=== PATIENT | female | born 1940 | race African-American/Black ===

== ENCOUNTER 2019-01-26 09:27 | Inpatient (IN) ==
[2019-01-26] MEDS ORDERED: DOCUSATE SODIUM 100 MG CAPSULE PO PRN (09:34)
[2019-01-26] MEDS ORDERED: MECLIZINE 25 MG TABLET PO PRN (09:43)
[2019-01-26] MEDS: ACETAMINOPHEN 325 MG TABLET PO PRN (14:05)
[2019-01-26 14:34] LABS: Apearance,Urine CLEAR (Clear); Bilirubin,Urine Negative (Negative); Blood, Urine Negative (Negative); Glucose,Urine (UA) Negative (Negative); Hyaline Casts,Urine 1 /LPF (0-3); Ketones,Urine Negative (Negative); Nitrite,Urine Negative (Negative); Protein,Urine Negative; RBC,Urine 1 /HPF (0-4); Squamous Epithelial Cell,Urine Occasional /HPF (0-10); Urine Color Yellow (Yellow); Urine Specific Gravity 1.016 (1.001-1.035); Urine Urobilinogen < 2.0 EU/DL (0.2-1.0); WBC,Urine 1 /HPF (0-6)
[2019-01-26] MEDS: SODIUM CHLORIDE 0.9% 1,000 ML IV SCH ×2 (17:09→21:32)
[2019-01-26 17:16] LABS: Basophils % 0.3 % (0.0-0.8); Eosinophils % 0.4 % (0.00-10.9); Hematocrit 19.2 VOL% (35.7-47.0); Immature Granulocytes % 0.7 %; Immature Granulocytes Absolute 0.06 #; Lymphocytes # 1.8 10*3/uL (1.4-4.0); Lymphocytes % 19.8 % (21.3-54.2); Mean Corpuscular HGB Conc 30.7 GM/DL (32-36); Mean Corpuscular Volume 91.9 FL (87-102); Mean Platelet Volume 9.6 FL (9.6-12.0); Monocytes % 8.4 % (1.7-12.7); NRBC # 0.07 10*3/uL; Neutrophils % 70.4 % (38.7-73.9); Platelet Count 354 T/CUMM (130-400); Red Blood Count 2.09 MC/CUMM (3.8-5.5)
[2019-01-26 17:20] LABS: Hemoglobin 5.9 GM/DL (12.0-16.0)
[2019-01-26] MEDS ORDERED: SODIUM CHLORIDE 0.9% 1,000 ML IV PRN (17:28)
[2019-01-26] MEDS ORDERED: FUROSEMIDE 20 MG/2 ML VIAL IV PRN (17:28)
[2019-01-26 17:40] LABS: Alanine Aminotransferase 17 U/L (13-56); Albumin 2.8 G/DL (3.4-5.0); Alkaline Phosphatase 88 U/L (45-117); Aspartate Amino Transferase 12 U/L (0-37); Bilirubin,Total < 0.39 MG/DL (0.2-1.0); Blood Urea Nitrogen 32 MG/DL (7-18); Calcium 7.6 MG/DL (8.5-10.1); Estimated Glom Filtration Rate 71 ML/MIN; Glucose 139 MG/DL (74-106); Osmolality,Calculated 283.7 MOS/KG (273-304); Total Protein 5.8 G/DL (6.4-8.3)
[2019-01-26 17:44] LABS: Anisocytosis 1+; Elliptocytes 1+; Hypochromasia 2+; Platelet Estimate Adequate; Poikilocytosis 1+; Polychromasia 1+
[2019-01-26] MEDS ORDERED: LACTULOSE 20 GM/30 ML UDCUP PO ONE (21:00)
[2019-01-26] MEDS: traMADol 50 MG TABLET PO PRN (21:29)
[2019-01-27 08:37] LABS: Hematocrit 26.5 VOL% (35.7-47.0); Hemoglobin 8.4 GM/DL (12.0-16.0)
[2019-01-27] MEDS ORDERED: PANTOPRAZOLE 40 MG TABLET PO SCH (09:00)
[2019-01-27] MEDS ORDERED: SODIUM CHLORIDE 0.9% 1,000 ML IV PRN ×4 (09:12→12:40)
[2019-01-27] MEDS: ACETAMINOPHEN 325 MG TABLET PO PRN (09:21)
[2019-01-27] MEDS: ONDANSETRON 4 MG/2 ML VIAL IV PRN (12:10)
[2019-01-27] MEDS: SODIUM CHLORIDE 0.9% 1,000 ML IV SCH ×2 (18:03→18:05)
[2019-01-27] MEDS: traMADol 50 MG TABLET PO PRN (18:33)
[2019-01-27] MEDS: PANTOPRAZOLE 40 MG TABLET PO SCH (21:18)
[2019-01-27] MEDS: ARIPiprazole 2 MG TABLET PO SCH (21:19)
[2019-01-28] MEDS: ACETAMINOPHEN 325 MG TABLET PO PRN (03:25)
[2019-01-28] MEDS: SODIUM CHLORIDE 0.9% 1,000 ML IV SCH ×2 (04:25→13:52)
[2019-01-28 07:18] LABS: Basophils # 0.1 10*3/uL (0.0-0.2); Basophils % 0.9 % (0.0-0.8); Eosinophils # 0.1 10*3/uL (0.0-0.87); Eosinophils % 1.7 % (0.00-10.9); Hematocrit 28.4 VOL% (35.7-47.0); Hemoglobin 9.2 GM/DL (12.0-16.0); Immature Granulocytes Absolute 0.14 #; Lymphocytes # 1.3 10*3/uL (1.4-4.0); Lymphocytes % 19.3 % (21.3-54.2); Mean Corpuscular HGB Conc 32.4 GM/DL (32-36); Mean Corpuscular Volume 89.9 FL (87-102); Mean Platelet Volume 9.7 FL (9.6-12.0); NRBC # 0.15 10*3/uL; Neutrophils % 65.1 % (38.7-73.9); Platelet Count 315 T/CUMM (130-400); Red Blood Count 3.16 MC/CUMM (3.8-5.5); Red Cell Distribution Width 24.4 % (9.3-17.3); White Blood Count 6.9 T/CUMM (4-12)
[2019-01-28 07:40] LABS: Calcium 7.3 MG/DL (8.5-10.1); Osmolality,Calculated 285.8 MOS/KG (273-304)
[2019-01-28 07:43] LABS: Platelet Estimate Normal
[2019-01-28 07:44] LABS: Anisocytosis 3+; Poikilocytosis Slight; Polychromasia 1+
[2019-01-28] MEDS ORDERED: LACTATED RINGERS 1,000 ML IV SCH (08:00)
[2019-01-28] MEDS ORDERED: LIDOCAINE 2% 5 ML VIAL ONE (10:00)
[2019-01-28] MEDS ORDERED: PROPOFOL 200 MG/20 ML VIAL IV ONE (10:00)
[2019-01-28] MEDS ORDERED: ONDANSETRON 4 MG/2 ML VIAL ONE (12:00)
[2019-01-28] MEDS: ONDANSETRON 4 MG/2 ML VIAL IV PRN (12:02)
[2019-01-28] MEDS: ESCITALOPRAM 10 MG TABLET PO SCH (13:45)
[2019-01-28] MEDS: PANTOPRAZOLE 40 MG TABLET PO SCH ×2 (13:46→21:01)
[2019-01-28] MEDS: traMADol 50 MG TABLET PO PRN ×2 (15:41→22:00)
[2019-01-28] MEDS: ARIPiprazole 2 MG TABLET PO SCH (21:00)
[2019-01-29 05:00] LABS: Calcium 7.1 MG/DL (8.5-10.1); Osmolality,Calculated 278.4 MOS/KG (273-304)
[2019-01-29] MEDS: SODIUM CHLORIDE 0.9% 1,000 ML IV SCH ×3 (05:32→19:17)
[2019-01-29] MEDS ORDERED: MAGNESIUM SULF RIDER 4 GM in PREMIX 1 EACH IV PRN (09:34)
[2019-01-29] MEDS ORDERED: MAGNESIUM SULF RIDER 2 GM in PREMIX 1 EACH IV PRN (09:34)
[2019-01-29] MEDS: traMADol 50 MG TABLET PO PRN ×2 (09:43→14:13)
[2019-01-29] MEDS: PANTOPRAZOLE 40 MG TABLET PO SCH ×2 (09:44→20:11)
[2019-01-29] MEDS: ESCITALOPRAM 10 MG TABLET PO SCH (09:46)
[2019-01-29] MEDS: ARIPiprazole 2 MG TABLET PO SCH (20:12)
[2019-01-29] MEDS: traZODone 50 MG TABLET PO PRN (20:13)
[2019-01-30] MEDS: traMADol 50 MG TABLET PO PRN ×4 (00:04→19:46)
[2019-01-30 04:33] LABS: Basophils # 0.1 10*3/uL (0.0-0.2); Basophils % 0.6 % (0.0-0.8); Eosinophils # 0.1 10*3/uL (0.0-0.87); Eosinophils % 1.8 % (0.00-10.9); Hematocrit 26.3 VOL% (35.7-47.0); Hemoglobin 8.3 GM/DL (12.0-16.0); Immature Granulocytes Absolute 0.08 #; Lymphocytes # 1.4 10*3/uL (1.4-4.0); Lymphocytes % 18.1 % (21.3-54.2); Mean Corpuscular HGB Conc 31.6 GM/DL (32-36); Mean Corpuscular Volume 92.3 FL (87-102); Mean Platelet Volume 9.2 FL (9.6-12.0); Monocytes % 13.7 % (1.7-12.7); NRBC # 0.02 10*3/uL; Neutrophils % 64.8 % (38.7-73.9); Platelet Count 328 T/CUMM (130-400); Red Blood Count 2.85 MC/CUMM (3.8-5.5); Red Cell Distribution Width 24.9 % (9.3-17.3); White Blood Count 7.8 T/CUMM (4-12)
[2019-01-30 04:52] LABS: Calcium 7.4 MG/DL (8.5-10.1); Osmolality,Calculated 293.3 MOS/KG (273-304)
[2019-01-30] MEDS: SODIUM CHLORIDE 0.9% 1,000 ML IV SCH ×3 (05:09→20:00)
[2019-01-30 06:47] LABS: Eosinophils 4 % (0-10); Lymphocytes 20 % (20-55); Platelet Estimate Normal; Segmented Neutrophils 65 % (50-85); Total Cells Counted 100
[2019-01-30 06:48] LABS: Hypochromasia 2+
[2019-01-30] MEDS: ESCITALOPRAM 10 MG TABLET PO SCH (10:15)
[2019-01-30] MEDS: PANTOPRAZOLE 40 MG TABLET PO SCH ×2 (10:15→19:46)
[2019-01-30 13:08] LABS: Hematocrit 26.5 VOL% (35.7-47.0); Hemoglobin 8.4 GM/DL (12.0-16.0)
[2019-01-30 18:51] LABS: Hematocrit 26.4 VOL% (35.7-47.0); Hemoglobin 8.3 GM/DL (12.0-16.0)
[2019-01-30] MEDS ORDERED: SODIUM CHLORIDE 0.9% 1,000 ML IV SCH (19:30)
[2019-01-30] MEDS: traZODone 50 MG TABLET PO PRN (19:45)
[2019-01-30] MEDS: ARIPiprazole 2 MG TABLET PO SCH (19:46)
[2019-01-31] MEDS: traMADol 50 MG TABLET PO PRN ×3 (03:24→18:36)
[2019-01-31] MEDS: SODIUM CHLORIDE 0.9% 1,000 ML IV SCH ×3 (03:33→16:30)
[2019-01-31 06:35] LABS: Basophils # 0.1 10*3/uL (0.0-0.2); Basophils % 0.7 % (0.0-0.8); Eosinophils # 0.1 10*3/uL (0.0-0.87); Eosinophils % 1.9 % (0.00-10.9); Hematocrit 27.1 VOL% (35.7-47.0); Hemoglobin 8.3 GM/DL (12.0-16.0); Immature Granulocytes % 0.6 %; Immature Granulocytes Absolute 0.04 #; Lymphocytes # 1.2 10*3/uL (1.4-4.0); Lymphocytes % 18.6 % (21.3-54.2); Mean Corpuscular HGB Conc 30.6 GM/DL (32-36); Mean Corpuscular Volume 95.8 FL (87-102); Mean Platelet Volume 9.2 FL (9.6-12.0); Monocytes % 14.1 % (1.7-12.7); Neutrophils % 64.1 % (38.7-73.9); Platelet Count 343 T/CUMM (130-400); Red Blood Count 2.83 MC/CUMM (3.8-5.5); Red Cell Distribution Width 25.7 % (9.3-17.3); White Blood Count 6.7 T/CUMM (4-12)
[2019-01-31 06:46] LABS: Calcium 7.5 MG/DL (8.5-10.1); Osmolality,Calculated 285.7 MOS/KG (273-304)
[2019-01-31 06:54] LABS: Platelet Estimate Normal
[2019-01-31 06:55] LABS: Anisocytosis 2+
[2019-01-31 06:56] LABS: Macrocytosis 1+; Polychromasia 1+
[2019-01-31] MEDS ORDERED: BISACODYL 10 MG SUPP RECTAL PRN (07:40)
[2019-01-31] MEDS ORDERED: LACTULOSE 20 GM/30 ML UDCUP PO PRN (08:10)
[2019-01-31] MEDS: ESCITALOPRAM 10 MG TABLET PO SCH (08:11)
[2019-01-31] MEDS: PANTOPRAZOLE 40 MG TABLET PO SCH ×2 (08:11→21:36)
[2019-01-31] MEDS: ONDANSETRON 4 MG/2 ML VIAL IV PRN (09:09)
[2019-01-31] MEDS: MULTIVITAMIN (CENTRUM) TABLET PO SCH (10:23)
[2019-01-31] MEDS: CLORAZEPATE 7.5 MG TABLET PO SCH ×2 (10:23→21:37)
[2019-01-31] MEDS ORDERED: LACTULOSE 20 GM/30 ML UDCUP PO SCH (12:00)
[2019-01-31 12:19] LABS: Hematocrit 30.6 VOL% (35.7-47.0); Hemoglobin 9.7 GM/DL (12.0-16.0)
[2019-01-31] MEDS ORDERED: CYANOCOBALAMIN 1000 MCG/1 ML VIAL IM ONE (13:00)
[2019-01-31 19:49] LABS: Hematocrit 27.7 VOL% (35.7-47.0); Hemoglobin 8.6 GM/DL (12.0-16.0)
[2019-01-31] MEDS: ARIPiprazole 2 MG TABLET PO SCH (21:36)
[2019-02-01] MEDS: traMADol 50 MG TABLET PO PRN (02:11)
[2019-02-01] MEDS ORDERED: CYANOCOBALAMIN 500 MCG TABLET PO SCH (09:00)
[2019-02-01] MEDS ORDERED: ESCITALOPRAM 10 MG TABLET PO SCH (09:00)
[2019-02-01] MEDS: MULTIVITAMIN (CENTRUM) TABLET PO SCH (09:04)
[2019-02-01] MEDS: CLORAZEPATE 7.5 MG TABLET PO SCH (09:05)
[2019-02-01] MEDS: PANTOPRAZOLE 40 MG TABLET PO SCH (09:05)
[2019-02-01] MEDS: ONDANSETRON 4 MG/2 ML VIAL IV PRN (09:28)
[2019-02-01 10:45] VITALS: BP 127/66
== END 2019-02-01 13:11 | disposition home health service (06) | DRG 378 ==
LOC: N.2W → N.4E 01-27 17:44
PROVIDERS: ADMIT Family Medicine; ATTEND Family Medicine

== ENCOUNTER 2021-08-23 23:45 | Inpatient (IN) ==
[2021-08-24] MEDS ORDERED: SODIUM CHLORIDE 0.9% 1,000 ML IV STA (00:28)
[2021-08-24] MEDS ORDERED: ONDANSETRON 4 MG/2 ML VIAL IV STA (01:24)
[2021-08-24] MEDS ORDERED: HYDROmorphone 1 MG/1 ML SYRINGE IV ONE (01:24)
[2021-08-24 01:26] LABS: Basophils # 0.1 10*3/uL (0.0-0.2); Basophils % 0.5 % (0.0-0.8); Eosinophils % 0.3 % (0.00-10.9); Hematocrit 24.9 VOL% (35.7-47.0); Immature Granulocytes % 0.6 %; Immature Granulocytes Absolute 0.06 #; Lymphocytes # 0.4 10*3/uL (1.4-4.0); Lymphocytes % 3.5 % (21.3-54.2); Mean Corpuscular HGB Conc 32.1 GM/DL (32-36); Mean Platelet Volume 10.5 FL (9.6-12.0); Monocytes # 0.4 10*3/uL (0.11-0.8); Neutrophils % 91.1 % (38.7-73.9); Platelet Count 261 T/CUMM (130-400); Red Blood Count 2.62 MC/CUMM (3.8-5.5); Red Cell Distribution Width 13.4 % (9.3-17.3); White Blood Count 10.7 T/CUMM (4-12)
[2021-08-24 01:27] LABS: Bacteria,Urine Occasional /HPF (Few); Hyaline Casts,Urine 3 /LPF (0-3); Mucus,Urine Occasional /LPF (Occasional); RBC,Urine 1 /HPF (0-4)
[2021-08-24 01:30] LABS: Glucose,Urine (UA) Negative (Negative); Ketones,Urine Negative (Negative); Nitrite,Urine Positive (Negative); Protein,Urine Negative (Negative); Urine Appearance Clear (Clear); Urine Color Orange (Yellow); Urine Specific Gravity < 1.005 (1.001-1.035)
[2021-08-24 01:31] LABS: Bilirubin,Urine Negative (Negative); Blood, Urine Negative (Negative)
[2021-08-24 01:48] LABS: Lymphocytes 5 % (20-55); Platelet Estimate Normal; Total Cells Counted 100
[2021-08-24 01:49] LABS: Alanine Aminotransferase 33 U/L (13-56); Albumin 2.9 G/DL (3.4-5.0); Alkaline Phosphatase 46 U/L (45-117); Aspartate Amino Transferase 25 U/L (0-37); Bilirubin,Total < 0.39 MG/DL (0.20-1.00); Blood Urea Nitrogen 53 MG/DL (7-18); Calcium 9.5 MG/DL (8.5-10.1); Carbon Dioxide 26 MMOL/L (21-32); Chloride 105 MMOL/L (98-107); Glucose 126 MG/DL (74-106); Osmolality,Calculated 288.8 MOS/KG (273-304); Sodium 137 MMOL/L (136-145); Total Protein 6.2 G/DL (6.4-8.2)
[2021-08-24] MEDS ORDERED: ACETAMINOPHEN 325 MG TABLET PO PRN (04:52)
[2021-08-24] MEDS: SODIUM CHLORIDE 0.9% 1,000 ML IV SCH ×4 (07:28→20:25)
[2021-08-24] MEDS: NON-FORMULARY MEDICATION (Calcium Carbonate-Vitamin D3 [Caltrate 600 Plus D] 600 mg (1,500 PO SCH (09:15)
[2021-08-24] MEDS: DULoxetine 30 MG CAPSULE PO SCH (09:15)
[2021-08-24] MEDS: LOSARTAN 25 MG TABLET PO SCH (09:15)
[2021-08-24] MEDS: MULTIVITAMIN (CENTRUM) TABLET PO SCH (09:15)
[2021-08-24] MEDS: DOCUSATE SODIUM 100 MG CAPSULE PO SCH ×2 (09:15→21:27)
[2021-08-24] MEDS: PANTOPRAZOLE 40 MG TABLET PO SCH ×2 (09:16→21:27)
[2021-08-24] MEDS: hydroCHLOROthiazide 25 MG TABLET PO SCH (09:16)
[2021-08-24] MEDS: CHOLECALCIFEROL 5,000 UNIT TABLET PO SCH (09:16)
[2021-08-24] MEDS: APIXABAN 2.5 MG TABLET PO SCH ×2 (09:16→21:27)
[2021-08-24] MEDS: FLUTICASONE 50 MCG NASAL SPRAY 16 GM BOTTLE BOTH NARES SCH (09:23)
[2021-08-24] MEDS: ENOXAPARIN 40 MG/0.4 ML SYRINGE SUBCUT SCH (09:23)
[2021-08-24] MEDS: DOXYCYCLINE HYCLATE INJ 100 MG in SODIUM CHLORIDE 0.9% 100 ML IV SCH ×2 (09:23→17:05)
[2021-08-24] MEDS: HYDROmorphone 1 MG/1 ML SYRINGE IV PRN ×3 (09:38→21:26)
[2021-08-24] MEDS ORDERED: VANCOMYCIN INJ 1,000 MG in SODIUM CHLORIDE 0.9% 250 ML IV PRN (15:05)
[2021-08-24] MEDS ORDERED: VANCOMYCIN INJ 1,000 MG in SODIUM CHLORIDE 0.9% 250 ML IV ONE (16:00)
[2021-08-24] MEDS: FLUCONAZOLE INJ 100 MG/50 ML PREMIX IV SCH (16:35)
[2021-08-24] MEDS: NYSTATIN 500,000 UNIT/5 ML UDCUP PO SCH ×2 (16:35→21:26)
[2021-08-25] MEDS: HYDROmorphone 1 MG/1 ML SYRINGE IV PRN ×4 (03:42→19:17)
[2021-08-25] MEDS: SODIUM CHLORIDE 0.9% 1,000 ML IV SCH ×3 (04:33→22:20)
[2021-08-25 04:51] LABS: Basophils % 0.5 % (0.0-0.8); Eosinophils % 0.4 % (0.00-10.9); Hematocrit 23.4 VOL% (35.7-47.0); Hemoglobin 7.2 GM/DL (12.0-16.0); Immature Granulocytes % 0.7 %; Immature Granulocytes Absolute 0.04 #; Lymphocytes # 0.8 10*3/uL (1.4-4.0); Lymphocytes % 14.2 % (21.3-54.2); Mean Corpuscular HGB Conc 30.8 GM/DL (32-36); Mean Corpuscular Volume 97.9 FL (87-102); Monocytes # 0.6 10*3/uL (0.11-0.8); Monocytes % 11.5 % (1.7-12.7); Neutrophils % 72.7 % (38.7-73.9); Platelet Count 184 T/CUMM (130-400); Red Blood Count 2.39 MC/CUMM (3.8-5.5); Red Cell Distribution Width 13.3 % (9.3-17.3); White Blood Count 5.6 T/CUMM (4-12)
[2021-08-25 05:26] LABS: Alanine Aminotransferase 34 U/L (13-56); Albumin 2.1 G/DL (3.4-5.0); Alkaline Phosphatase 43 U/L (45-117); Aspartate Amino Transferase 30 U/L (0-37); Bilirubin,Total < 0.39 MG/DL (0.20-1.00); Blood Urea Nitrogen 46 MG/DL (7-18); Calcium 8.3 MG/DL (8.5-10.1); Carbon Dioxide 24 MMOL/L (21-32); Chloride 112 MMOL/L (98-107); Glucose 106 MG/DL (74-106); Osmolality,Calculated 294.1 MOS/KG (273-304); Potassium 3.8 MMOL/L (3.5-5.1); Sodium 142 MMOL/L (136-145); Total Protein 5.1 G/DL (6.4-8.2)
[2021-08-25 05:37] LABS: Iron 9 UG/DL (50-170)
[2021-08-25] MEDS: DOXYCYCLINE HYCLATE INJ 100 MG in SODIUM CHLORIDE 0.9% 100 ML IV SCH ×2 (05:40→18:35)
[2021-08-25 05:48] LABS: Anisocytosis Slight; Band Neutrophils 16 % (0-10); Lymphocytes 16 % (20-55); Platelet Estimate Normal; Total Cells Counted 100
[2021-08-25 05:49] LABS: Macrocytosis Slight
[2021-08-25] MEDS: APIXABAN 2.5 MG TABLET PO SCH ×2 (08:38→20:50)
[2021-08-25] MEDS: DOCUSATE SODIUM 100 MG CAPSULE PO SCH ×2 (08:38→20:50)
[2021-08-25] MEDS: MULTIVITAMIN (CENTRUM) TABLET PO SCH (08:38)
[2021-08-25] MEDS: LOSARTAN 25 MG TABLET PO SCH (08:38)
[2021-08-25] MEDS: hydroCHLOROthiazide 25 MG TABLET PO SCH (08:38)
[2021-08-25] MEDS: CHOLECALCIFEROL 5,000 UNIT TABLET PO SCH (08:38)
[2021-08-25] MEDS: NON-FORMULARY MEDICATION (Calcium Carbonate-Vitamin D3 [Caltrate 600 Plus D] 600 mg (1,500 PO SCH (08:38)
[2021-08-25] MEDS: DULoxetine 30 MG CAPSULE PO SCH (08:38)
[2021-08-25] MEDS: PANTOPRAZOLE 40 MG TABLET PO SCH ×2 (08:38→20:50)
[2021-08-25] MEDS ORDERED: IRON SUCROSE 100 MG/5 ML VIAL IV ONE ×2 (09:00→16:06)
[2021-08-25] MEDS: NYSTATIN 500,000 UNIT/5 ML UDCUP PO SCH ×4 (10:31→20:51)
[2021-08-25] MEDS: ENOXAPARIN 40 MG/0.4 ML SYRINGE SUBCUT SCH (10:31)
[2021-08-25] MEDS: FLUTICASONE 50 MCG NASAL SPRAY 16 GM BOTTLE BOTH NARES SCH (10:31)
[2021-08-25] MEDS: FLUCONAZOLE INJ 100 MG/50 ML PREMIX IV SCH (15:36)
[2021-08-25] MEDS ORDERED: FUROSEMIDE 20 MG/2 ML VIAL IV ONE (16:30)
[2021-08-25] MEDS ORDERED: MAGNESIUM SULF RIDER 2 GM/50 ML PREMIX IV ONE (16:30)
[2021-08-25] MEDS ORDERED: FERRIC GLUCONATE COMPLEX 125 MG in SODIUM CHLORIDE 0.9% 100 ML IV ONE (17:00)
[2021-08-25] MEDS ORDERED: IRON SUCROSE 100 MG in SODIUM CHLORIDE 0.9% 100 ML IV ONE (17:00)
[2021-08-25] MEDS ORDERED: VANCOMYCIN INJ 1,000 MG in SODIUM CHLORIDE 0.9% 250 ML IV ONE (18:30)
[2021-08-26] MEDS: ACETAMINOPHEN 650 MG SUPP RECTAL PRN (01:22)
[2021-08-26] MEDS: ONDANSETRON 4 MG/2 ML VIAL IV PRN ×3 (03:25→23:50)
[2021-08-26] MEDS: HYDROmorphone 1 MG/1 ML SYRINGE IV PRN ×3 (03:33→17:28)
[2021-08-26] MEDS ORDERED: FUROSEMIDE 20 MG/2 ML VIAL IV ONE (04:00)
[2021-08-26] MEDS: SODIUM CHLORIDE 0.9% 1,000 ML IV SCH ×3 (04:26→21:34)
[2021-08-26] MEDS: hydroCHLOROthiazide 25 MG TABLET PO SCH (08:55)
[2021-08-26] MEDS: DULoxetine 30 MG CAPSULE PO SCH (08:56)
[2021-08-26] MEDS: LOSARTAN 25 MG TABLET PO SCH (08:56)
[2021-08-26] MEDS: PANTOPRAZOLE 40 MG TABLET PO SCH ×2 (08:56→21:37)
[2021-08-26] MEDS: NYSTATIN 500,000 UNIT/5 ML UDCUP PO SCH ×4 (08:56→21:37)
[2021-08-26] MEDS: ENOXAPARIN 40 MG/0.4 ML SYRINGE SUBCUT SCH (08:57)
[2021-08-26] MEDS ORDERED: MAGNESIUM SULF RIDER 2 GM/50 ML PREMIX IV ONE (09:00)
[2021-08-26] MEDS ORDERED: IRON SUCROSE 100 MG/5 ML VIAL IV SCH (09:00)
[2021-08-26] MEDS ORDERED: FERRIC GLUCONATE COMPLEX 125 MG in SODIUM CHLORIDE 0.9% 100 ML IV ONE ×2 (09:00→13:00)
[2021-08-26] MEDS ORDERED: IRON SUCROSE 100 MG/5 ML VIAL IV ONE (09:00)
[2021-08-26 09:02] LABS: Basophils % 0.4 % (0.0-0.8); Eosinophils # 0.1 10*3/uL (0.0-0.87); Hematocrit 33.8 VOL% (35.7-47.0); Hemoglobin 10.8 GM/DL (12.0-16.0); Immature Granulocytes % 0.9 %; Immature Granulocytes Absolute 0.07 #; Lymphocytes # 0.9 10*3/uL (1.4-4.0); Lymphocytes % 11.1 % (21.3-54.2); Mean Corpuscular Volume 92.1 FL (87-102); Mean Platelet Volume 11.8 FL (9.6-12.0); Neutrophils % 74.6 % (38.7-73.9); Platelet Count 171 T/CUMM (130-400); Red Blood Count 3.67 MC/CUMM (3.8-5.5); Red Cell Distribution Width 15.3 % (9.3-17.3); White Blood Count 8.1 T/CUMM (4-12)
[2021-08-26] MEDS: DOXYCYCLINE HYCLATE INJ 100 MG in SODIUM CHLORIDE 0.9% 100 ML IV SCH (09:14)
[2021-08-26] MEDS: FLUTICASONE 50 MCG NASAL SPRAY 16 GM BOTTLE BOTH NARES SCH (09:18)
[2021-08-26 09:19] LABS: Bilirubin,Total 0.4 MG/DL (0.20-1.00); Calcium 8.4 MG/DL (8.5-10.1); Osmolality,Calculated 289.3 MOS/KG (273-304); Potassium 3.6 MMOL/L (3.5-5.1); Total Protein 5.6 G/DL (6.4-8.2)
[2021-08-26 09:23] LABS: Eosinophils 3 % (0-10); Lymphocytes 10 % (20-55); Platelet Estimate Adequate; Total Cells Counted 100
[2021-08-26] MEDS: DOCUSATE SODIUM 100 MG CAPSULE PO SCH ×2 (10:36→21:33)
[2021-08-26] MEDS: MULTIVITAMIN (CENTRUM) TABLET PO SCH (10:36)
[2021-08-26] MEDS: APIXABAN 2.5 MG TABLET PO SCH ×2 (10:37→21:37)
[2021-08-26] MEDS: CHOLECALCIFEROL 5,000 UNIT TABLET PO SCH (10:37)
[2021-08-26] MEDS: NON-FORMULARY MEDICATION (Calcium Carbonate-Vitamin D3 [Caltrate 600 Plus D] 600 mg (1,500 PO SCH (10:39)
[2021-08-26] MEDS: FLUCONAZOLE INJ 100 MG/50 ML PREMIX IV SCH (16:50)
[2021-08-26] MEDS: VANCOMYCIN INJ 1,000 MG in SODIUM CHLORIDE 0.9% 250 ML IV SCH (22:54)
[2021-08-27] MEDS: SODIUM CHLORIDE 0.9% 1,000 ML IV SCH ×3 (03:54→20:54)
[2021-08-27] MEDS: HYDROmorphone 1 MG/1 ML SYRINGE IV PRN (05:01)
[2021-08-27 06:26] LABS: Basophils % 0.5 % (0.0-0.8); Eosinophils # 0.2 10*3/uL (0.0-0.87); Eosinophils % 2.3 % (0.00-10.9); Hemoglobin 10.3 GM/DL (12.0-16.0); Immature Granulocytes % 0.9 %; Immature Granulocytes Absolute 0.07 #; Lymphocytes # 0.7 10*3/uL (1.4-4.0); Mean Corpuscular HGB Conc 32.2 GM/DL (32-36); Mean Corpuscular Volume 93.3 FL (87-102); Mean Platelet Volume 13.2 FL (9.6-12.0); Monocytes % 11.9 % (1.7-12.7); Neutrophils % 75.4 % (38.7-73.9); Platelet Count 156 T/CUMM (130-400); Red Blood Count 3.43 MC/CUMM (3.8-5.5); Red Cell Distribution Width 15.9 % (9.3-17.3)
[2021-08-27 06:43] LABS: Albumin 1.9 G/DL (3.4-5.0); Bilirubin,Total 0.4 MG/DL (0.20-1.00); Calcium 8.4 MG/DL (8.5-10.1); Osmolality,Calculated 294.2 MOS/KG (273-304); Total Protein 5.2 G/DL (6.4-8.2)
[2021-08-27 06:46] LABS: Eosinophils 6 % (0-10); Lymphocytes 9 % (20-55); Platelet Estimate Adequate; Total Cells Counted 100
[2021-08-27] MEDS ORDERED: CLINDAMYCIN INJ 900 MG/50 ML PREMIX IV ONE (07:19)
[2021-08-27] MEDS: NYSTATIN 500,000 UNIT/5 ML UDCUP PO SCH ×5 (09:00→21:04)
[2021-08-27] MEDS: ENOXAPARIN 40 MG/0.4 ML SYRINGE SUBCUT SCH ×2 (09:00→09:27)
[2021-08-27] MEDS: ONDANSETRON 4 MG/2 ML VIAL IV PRN ×2 (09:00→15:00)
[2021-08-27] MEDS: FLUTICASONE 50 MCG NASAL SPRAY 16 GM BOTTLE BOTH NARES SCH (09:01)
[2021-08-27] MEDS: PANTOPRAZOLE 40 MG TABLET PO SCH ×2 (09:01→20:55)
[2021-08-27] MEDS: DULoxetine 30 MG CAPSULE PO SCH (09:01)
[2021-08-27] MEDS: hydroCHLOROthiazide 25 MG TABLET PO SCH (09:01)
[2021-08-27] MEDS: LOSARTAN 25 MG TABLET PO SCH ×2 (09:01→09:26)
[2021-08-27] MEDS ORDERED: cloNIDine 0.2 MG/24 HR PATCH TRANSDERM SCH (11:00)
[2021-08-27] MEDS: diphenhydrAMINE 50 MG/1 ML VIAL IV PRN (14:09)
[2021-08-27] MEDS ORDERED: HYDROCORTISONE 1% CREAM 28 GM TUBE TOP PRN (14:31)
[2021-08-27] MEDS: FLUCONAZOLE INJ 100 MG/50 ML PREMIX IV SCH (15:31)
[2021-08-27] MEDS ORDERED: BUTALBITAL/ACETAMIN/CAFFEINE 50-325-40 MG TABLET PO PRN (17:10)
[2021-08-27] MEDS: PROMETHAZINE INJ 12.5 MG in SODIUM CHLORIDE 0.9% 50 ML IV PRN (17:37)
[2021-08-27] MEDS ORDERED: HYDROmorphone 1 MG/1 ML SYRINGE IV SCH (21:00)
[2021-08-27] MEDS: VANCOMYCIN INJ 1,000 MG in SODIUM CHLORIDE 0.9% 250 ML IV SCH ×2 (21:09→23:45)
[2021-08-28] MEDS: SODIUM CHLORIDE 0.9% 1,000 ML IV SCH ×2 (06:19→15:44)
[2021-08-28 06:41] LABS: Calcium 8.1 MG/DL (8.5-10.1); Osmolality,Calculated 292.4 MOS/KG (273-304); Potassium 3.5 MMOL/L (3.5-5.1)
[2021-08-28] MEDS: ONDANSETRON 4 MG/2 ML VIAL IV PRN ×2 (08:08→15:38)
[2021-08-28] MEDS: LOSARTAN 25 MG TABLET PO SCH (14:11)
[2021-08-28] MEDS: HYDROmorphone 1 MG/1 ML SYRINGE IV PRN (15:41)
[2021-08-28] MEDS: FLUTICASONE 50 MCG NASAL SPRAY 16 GM BOTTLE BOTH NARES SCH (15:43)
[2021-08-28] MEDS ORDERED: AMINO ACIDS IV SCH (17:00)
[2021-08-28] MEDS ORDERED: DEXTROSE 70% IV SCH (17:00)
[2021-08-28] MEDS ORDERED: STERILE WATER IV SCH (17:00)
[2021-08-28] MEDS ORDERED: DEXTROSE 10% 1,000 ML IV PRN (17:00)
[2021-08-28] MEDS: MULTIVITAMIN IV SCH (17:57)
[2021-08-28] MEDS: [UNRECOGNIZED DRUG - OTHER] IV SCH (17:57)
[2021-08-28] MEDS: MANGANESE IV SCH (17:57)
[2021-08-28] MEDS: SELENIUM IV SCH (17:57)
[2021-08-28] MEDS: ZINC IV SCH (17:57)
[2021-08-28] MEDS: COPPER IV SCH (17:57)
[2021-08-28] MEDS: ENOXAPARIN 40 MG/0.4 ML SYRINGE SUBCUT SCH (18:26)
[2021-08-28] MEDS: VANCOMYCIN INJ 1,000 MG in SODIUM CHLORIDE 0.9% 250 ML IV SCH (21:34)
[2021-08-29] MEDS: HYDROmorphone 1 MG/1 ML SYRINGE IV PRN ×3 (00:28→21:38)
[2021-08-29] MEDS: ACETAMINOPHEN 650 MG SUPP RECTAL PRN (00:29)
[2021-08-29] MEDS: SODIUM CHLORIDE 0.9% 1,000 ML IV SCH (00:54)
[2021-08-29 08:20] LABS: Calcium 8.2 MG/DL (8.5-10.1); Potassium 4.2 MMOL/L (3.5-5.1)
[2021-08-29] MEDS ORDERED: MAGNESIUM SULF RIDER 2 GM/50 ML PREMIX IV ONE (08:29)
[2021-08-29] MEDS ORDERED: BUPIVACAINE MPF 0.25% 10 ML VIAL ONE (08:54)
[2021-08-29] MEDS ORDERED: TISSUE ADHESIVE 1 EACH APPLICATOR TOP ONE (08:54)
[2021-08-29] MEDS ORDERED: LIDOCAINE 1%/EPI INJ 20 ML VIAL ONE (08:55)
[2021-08-29] MEDS ORDERED: KETAMINE 500 MG/10 ML VIAL ONE (08:58)
[2021-08-29] MEDS ORDERED: fentaNYL 100 MCG/2 ML VIAL ONE (08:58)
[2021-08-29] MEDS ORDERED: propofoL 200 MG/20 ML VIAL IV ONE (08:58)
[2021-08-29] MEDS ORDERED: LACTATED RINGERS 1,000 ML IV SCH (09:30)
[2021-08-29] MEDS: ONDANSETRON 4 MG/2 ML VIAL IV PRN (10:40)
[2021-08-29] MEDS: ENOXAPARIN 40 MG/0.4 ML SYRINGE SUBCUT SCH (12:00)
[2021-08-29] MEDS: FLUTICASONE 50 MCG NASAL SPRAY 16 GM BOTTLE BOTH NARES SCH (12:00)
[2021-08-29] MEDS: SELENIUM IV SCH (12:02)
[2021-08-29] MEDS: MULTIVITAMIN IV SCH (12:02)
[2021-08-29] MEDS: MANGANESE IV SCH (12:02)
[2021-08-29] MEDS: [UNRECOGNIZED DRUG - OTHER] IV SCH (12:02)
[2021-08-29] MEDS: COPPER IV SCH (12:02)
[2021-08-29] MEDS: ZINC IV SCH (12:02)
[2021-08-29] MEDS ORDERED: SODIUM PHOSPHATE IV SCH ×2 (17:00)
[2021-08-29] MEDS ORDERED: [UNRECOGNIZED DRUG - OTHER] IV SCH (17:00)
[2021-08-29] MEDS ORDERED: [UNRECOGNIZED DRUG - OTHER] IV SCH (17:00)
[2021-08-29] MEDS ORDERED: SODIUM ACETATE IV SCH ×2 (17:00)
[2021-08-29] MEDS ORDERED: POTASSIUM CHLORIDE IV SCH ×2 (17:00)
[2021-08-29] MEDS: FAT EMULSION 20% 250 ML IV SCH (17:43)
[2021-08-29] MEDS: VANCOMYCIN INJ 1,000 MG in SODIUM CHLORIDE 0.9% 250 ML IV SCH (21:36)
[2021-08-30 06:02] LABS: Calcium 8.3 MG/DL (8.5-10.1); Osmolality,Calculated 283.4 MOS/KG (273-304); Phosphorous 2.9 MG/DL (2.5-4.9); Potassium 3.1 MMOL/L (3.5-5.1)
[2021-08-30 08:57] LABS: Basophils # 0.1 10*3/uL (0.0-0.2); Basophils % 0.7 % (0.0-0.8); Eosinophils # 0.7 10*3/uL (0.0-0.87); Eosinophils % 6.2 % (0.00-10.9); Hematocrit 34.1 VOL% (35.7-47.0); Hemoglobin 10.7 GM/DL (12.0-16.0); Immature Granulocytes Absolute 0.21 #; Lymphocytes # 1.2 10*3/uL (1.4-4.0); Lymphocytes % 11.4 % (21.3-54.2); Mean Corpuscular HGB Conc 31.4 GM/DL (32-36); Mean Corpuscular Volume 93.7 FL (87-102); Mean Platelet Volume 12.3 FL (9.6-12.0); Monocytes # 1.8 10*3/uL (0.11-0.8); Neutrophils % 62.7 % (38.7-73.9); Platelet Count 223 T/CUMM (130-400); Red Blood Count 3.64 MC/CUMM (3.8-5.5); Red Cell Distribution Width 15.4 % (9.3-17.3); White Blood Count 10.7 T/CUMM (4-12)
[2021-08-30 09:18] LABS: Eosinophils 4 % (0-10); Hypochromia Slight; Lymphocytes 14 % (20-55); Platelet Estimate Adequate; Total Cells Counted 100
[2021-08-30] MEDS: ENOXAPARIN 40 MG/0.4 ML SYRINGE SUBCUT SCH (09:26)
[2021-08-30] MEDS: HYDROmorphone 1 MG/1 ML SYRINGE IV PRN ×3 (09:27→23:53)
[2021-08-30] MEDS: SODIUM CHLORIDE 0.9% 1,000 ML IV SCH (09:28)
[2021-08-30] MEDS: FLUTICASONE 50 MCG NASAL SPRAY 16 GM BOTTLE BOTH NARES SCH (09:28)
[2021-08-30] MEDS: ONDANSETRON 4 MG/2 ML VIAL IV PRN ×2 (11:13→17:27)
[2021-08-30] MEDS: FAT EMULSION 20% 250 ML IV SCH ×2 (13:54)
[2021-08-30] MEDS: [UNRECOGNIZED DRUG - OTHER] IV SCH (17:16)
[2021-08-30] MEDS: SODIUM ACETATE IV SCH (17:16)
[2021-08-30] MEDS: POTASSIUM CHLORIDE IV SCH (17:16)
[2021-08-30] MEDS: SODIUM PHOSPHATE IV SCH (17:16)
[2021-08-30] MEDS: VANCOMYCIN INJ 1,000 MG in SODIUM CHLORIDE 0.9% 250 ML IV SCH (22:20)
[2021-08-31] MEDS: SODIUM CHLORIDE 0.9% 1,000 ML IV SCH ×2 (00:59→10:37)
[2021-08-31 05:37] LABS: Basophils # 0.1 10*3/uL (0.0-0.2); Basophils % 0.8 % (0.0-0.8); Eosinophils # 0.7 10*3/uL (0.0-0.87); Eosinophils % 6.5 % (0.00-10.9); Hemoglobin 11.1 GM/DL (12.0-16.0); Immature Granulocytes % 2.6 %; Immature Granulocytes Absolute 0.26 #; Lymphocytes # 1.3 10*3/uL (1.4-4.0); Mean Corpuscular HGB Conc 31.7 GM/DL (32-36); Mean Corpuscular Volume 93.3 FL (87-102); Monocytes # 1.7 10*3/uL (0.11-0.8); Neutrophils % 60.1 % (38.7-73.9); Platelet Count 268 T/CUMM (130-400); Red Blood Count 3.75 MC/CUMM (3.8-5.5); Red Cell Distribution Width 15.2 % (9.3-17.3)
[2021-08-31 05:51] LABS: Calcium 8.2 MG/DL (8.5-10.1); Osmolality,Calculated 281.4 MOS/KG (273-304); Potassium 3.7 MMOL/L (3.5-5.1)
[2021-08-31 05:52] LABS: Calcium 8.3 MG/DL (8.5-10.1); Osmolality,Calculated 284.3 MOS/KG (273-304); Potassium 4.2 MMOL/L (3.5-5.1)
[2021-08-31 06:04] LABS: Eosinophils 9 % (0-10); Lymphocytes 7 % (20-55); Platelet Estimate Normal; Total Cells Counted 100
[2021-08-31] MEDS: ENOXAPARIN 40 MG/0.4 ML SYRINGE SUBCUT SCH (09:44)
[2021-08-31] MEDS: FLUTICASONE 50 MCG NASAL SPRAY 16 GM BOTTLE BOTH NARES SCH (09:44)
[2021-08-31] MEDS: HYDROmorphone 1 MG/1 ML SYRINGE IV PRN ×3 (10:01→22:50)
[2021-08-31] MEDS: cloNIDine 0.3 MG/24 HR PATCH TRANSDERM SCH (17:00)
[2021-08-31] MEDS: hydrALAZINE 20 MG/1 ML VIAL IV PRN (17:02)
[2021-08-31] MEDS: ONDANSETRON 4 MG/2 ML VIAL IV PRN (17:02)
[2021-08-31] MEDS: SODIUM PHOSPHATE IV SCH (18:46)
[2021-08-31] MEDS: [UNRECOGNIZED DRUG - OTHER] IV SCH (18:46)
[2021-08-31] MEDS: SODIUM ACETATE IV SCH (18:46)
[2021-08-31] MEDS: POTASSIUM CHLORIDE IV SCH (18:46)
[2021-09-01] MEDS: VANCOMYCIN INJ 1,000 MG in SODIUM CHLORIDE 0.9% 250 ML IV SCH ×2 (00:08→12:07)
[2021-09-01] MEDS: SODIUM CHLORIDE 0.9% 1,000 ML IV SCH (04:19)
[2021-09-01] MEDS: HYDROmorphone 1 MG/1 ML SYRINGE IV PRN (05:20)
[2021-09-01 05:24] LABS: Basophils # 0.1 10*3/uL (0.0-0.2); Basophils % 0.6 % (0.0-0.8); Eosinophils # 0.3 10*3/uL (0.0-0.87); Eosinophils % 2.9 % (0.00-10.9); Hematocrit 33.8 VOL% (35.7-47.0); Hemoglobin 10.9 GM/DL (12.0-16.0); Immature Granulocytes % 0.9 %; Immature Granulocytes Absolute 0.08 #; Lymphocytes # 1.1 10*3/uL (1.4-4.0); Lymphocytes % 11.9 % (21.3-54.2); Mean Corpuscular HGB Conc 32.2 GM/DL (32-36); Mean Corpuscular Volume 91.1 FL (87-102); Mean Platelet Volume 10.6 FL (9.6-12.0); Monocytes # 1.3 10*3/uL (0.11-0.8); Monocytes % 14.9 % (1.7-12.7); Neutrophils % 68.8 % (38.7-73.9); Platelet Count 304 T/CUMM (130-400); Red Blood Count 3.71 MC/CUMM (3.8-5.5)
[2021-09-01 05:40] LABS: Calcium 8.4 MG/DL (8.5-10.1); Osmolality,Calculated 282.3 MOS/KG (273-304); Potassium 3.7 MMOL/L (3.5-5.1)
[2021-09-01 05:47] LABS: Calcium 8.1 MG/DL (8.5-10.1); Osmolality,Calculated 279.5 MOS/KG (273-304); Phosphorous 2.9 MG/DL (2.5-4.9); Potassium 3.8 MMOL/L (3.5-5.1)
[2021-09-01] MEDS: ENOXAPARIN 40 MG/0.4 ML SYRINGE SUBCUT SCH (08:11)
[2021-09-01] MEDS ORDERED: MAGNESIUM SULF RIDER 1 GM/100 ML PREMIX IV ONE (09:00)
[2021-09-01] MEDS: FLUTICASONE 50 MCG NASAL SPRAY 16 GM BOTTLE BOTH NARES SCH (09:00)
[2021-09-01] MEDS ORDERED: MAGNESIUM SULFATE 1 GM/2 ML VIAL IM ONE (09:00)
[2021-09-01] MEDS: FAT EMULSION 20% 250 ML IV SCH (14:22)
[2021-09-01] MEDS: SODIUM PHOSPHATE IV SCH (16:49)
[2021-09-01] MEDS: POTASSIUM CHLORIDE IV SCH (16:49)
[2021-09-01] MEDS: [UNRECOGNIZED DRUG - OTHER] IV SCH (16:49)
[2021-09-01] MEDS: SODIUM ACETATE IV SCH (16:49)
[2021-09-01] MEDS: HYDROmorphone 1 MG/1 ML SYRINGE IM PRN (17:15)
[2021-09-01] MEDS ORDERED: HYDROmorphone 1 MG/1 ML SYRINGE IM SCH (18:00)
[2021-09-02] MEDS: HYDROmorphone 1 MG/1 ML SYRINGE IM PRN (04:26)
[2021-09-02 06:11] LABS: Basophils % 0.4 % (0.0-0.8); Eosinophils # 0.3 10*3/uL (0.0-0.87); Eosinophils % 2.8 % (0.00-10.9); Hematocrit 30.8 VOL% (35.7-47.0); Hemoglobin 9.9 GM/DL (12.0-16.0); Immature Granulocytes % 0.7 %; Immature Granulocytes Absolute 0.06 #; Lymphocytes # 0.9 10*3/uL (1.4-4.0); Lymphocytes % 9.4 % (21.3-54.2); Mean Corpuscular HGB Conc 32.1 GM/DL (32-36); Mean Corpuscular Volume 91.7 FL (87-102); Monocytes # 1.2 10*3/uL (0.11-0.8); Neutrophils % 73.7 % (38.7-73.9); Platelet Count 328 T/CUMM (130-400); Red Blood Count 3.36 MC/CUMM (3.8-5.5); Red Cell Distribution Width 14.7 % (9.3-17.3)
[2021-09-02 06:26] LABS: Calcium 8.1 MG/DL (8.5-10.1); Osmolality,Calculated 282.1 MOS/KG (273-304); Potassium 3.5 MMOL/L (3.5-5.1)
[2021-09-02] MEDS: ENOXAPARIN 40 MG/0.4 ML SYRINGE SUBCUT SCH (09:30)
[2021-09-02] MEDS: FLUTICASONE 50 MCG NASAL SPRAY 16 GM BOTTLE BOTH NARES SCH (09:53)
[2021-09-02] MEDS: VANCOMYCIN INJ 1,000 MG in SODIUM CHLORIDE 0.9% 250 ML IV SCH (09:53)
[2021-09-02] MEDS: SODIUM CHLORIDE 0.9% 1,000 ML IV SCH (09:55)
[2021-09-02] MEDS: HYDROmorphone 1 MG/1 ML SYRINGE IV PRN ×2 (10:03→17:04)
[2021-09-02] MEDS: diphenhydrAMINE 50 MG/1 ML VIAL IV PRN (11:43)
[2021-09-02] MEDS: FAT EMULSION 20% 250 ML IV SCH (15:25)
[2021-09-02] MEDS: [UNRECOGNIZED DRUG - OTHER] IV SCH (16:29)
[2021-09-02] MEDS: SODIUM ACETATE IV SCH (16:29)
[2021-09-02] MEDS: POTASSIUM CHLORIDE IV SCH (16:29)
[2021-09-02] MEDS: SODIUM PHOSPHATE IV SCH (16:29)
[2021-09-03] MEDS: hydrALAZINE 20 MG/1 ML VIAL IV PRN ×2 (01:00→13:09)
[2021-09-03] MEDS: HYDROmorphone 1 MG/1 ML SYRINGE IV PRN ×3 (01:03→21:12)
[2021-09-03] MEDS: SODIUM CHLORIDE 0.9% 1,000 ML IV SCH ×2 (01:05→08:04)
[2021-09-03] MEDS ORDERED: ROCURONIUM 50 MG/5 ML VIAL IV ONE (07:35)
[2021-09-03] MEDS ORDERED: LIDOCAINE 2% 5 ML VIAL ONE (07:35)
[2021-09-03] MEDS ORDERED: ETOMIDATE 40 MG/20 ML VIAL IV ONE (07:35)
[2021-09-03] MEDS ORDERED: DEXMEDETOMIDINE 200 MCG/2 ML VIAL ONE (07:41)
[2021-09-03] MEDS: ONDANSETRON 4 MG/2 ML VIAL IV PRN (07:52)
[2021-09-03] MEDS: FLUTICASONE 50 MCG NASAL SPRAY 16 GM BOTTLE BOTH NARES SCH ×2 (07:52→12:53)
[2021-09-03] MEDS: ENOXAPARIN 40 MG/0.4 ML SYRINGE SUBCUT SCH (08:25)
[2021-09-03] MEDS ORDERED: fentaNYL 100 MCG/2 ML VIAL ONE (08:38)
[2021-09-03] MEDS ORDERED: DESFLURANE 1 UNIT/15 MINUTE INH ONE (08:53)
[2021-09-03] MEDS ORDERED: TISSUE ADHESIVE 1 EACH APPLICATOR TOP ONE (09:07)
[2021-09-03] MEDS ORDERED: BUPIVACAINE LIPOSOMAL 20 ML/266 MG VIAL ONE (09:08)
[2021-09-03] MEDS ORDERED: SUGAMMADEX 200 MG/2 ML VIAL IV ONE (09:40)
[2021-09-03] MEDS ORDERED: PROMETHAZINE 25 MG/1 ML VIAL ONE (10:03)
[2021-09-03] MEDS: PROMETHAZINE INJ 12.5 MG in SODIUM CHLORIDE 0.9% 50 ML IV PRN (10:05)
[2021-09-03] MEDS ORDERED: KETOROLAC 30 MG/1 ML VIAL IV ONE (12:22)
[2021-09-03] MEDS ORDERED: PROMETHAZINE INJ 12.5 MG in SODIUM CHLORIDE 0.9% 50 ML IV ONE (12:23)
[2021-09-03] MEDS ORDERED: VANCOMYCIN INJ 1,000 MG in SODIUM CHLORIDE 0.9% 250 ML IV SCH (21:00)
[2021-09-04] MEDS: SODIUM CHLORIDE 0.9% 1,000 ML IV SCH (04:26)
[2021-09-04 06:40] LABS: Basophils % 0.2 % (0.0-0.8); Eosinophils % 0.1 % (0.00-10.9); Hematocrit 31.3 VOL% (35.7-47.0); Hemoglobin 10.1 GM/DL (12.0-16.0); Immature Granulocytes % 0.8 %; Immature Granulocytes Absolute 0.18 #; Mean Corpuscular HGB Conc 32.3 GM/DL (32-36); Mean Platelet Volume 10.7 FL (9.6-12.0); Monocytes # 0.9 10*3/uL (0.11-0.8); Neutrophils % 90.9 % (38.7-73.9); Platelet Count 366 T/CUMM (130-400); Red Blood Count 3.44 MC/CUMM (3.8-5.5); Red Cell Distribution Width 15.1 % (9.3-17.3); White Blood Count 23.5 T/CUMM (4-12)
[2021-09-04] MEDS: HYDROmorphone 1 MG/1 ML SYRINGE IV PRN ×3 (06:42→20:32)
[2021-09-04 07:04] LABS: Calcium 7.6 MG/DL (8.5-10.1); Osmolality,Calculated 286.8 MOS/KG (273-304); Phosphorous 3.8 MG/DL (2.5-4.9); Potassium 3.6 MMOL/L (3.5-5.1)
[2021-09-04 07:08] LABS: Lymphocytes 1 % (20-55); Platelet Estimate Adequate; Total Cells Counted 100
[2021-09-04] MEDS: FLUTICASONE 50 MCG NASAL SPRAY 16 GM BOTTLE BOTH NARES SCH (09:11)
[2021-09-04] MEDS: ENOXAPARIN 40 MG/0.4 ML SYRINGE SUBCUT SCH (09:11)
[2021-09-04] MEDS: NYSTATIN 500,000 UNIT/5 ML UDCUP SWISH/SWAL SCH ×3 (14:12→20:20)
[2021-09-04] MEDS: diphenhydrAMINE 50 MG/1 ML VIAL IV PRN (16:32)
[2021-09-04] MEDS ORDERED: MAGNESIUM SULF RIDER 2 GM/50 ML PREMIX IV ONE (17:38)
[2021-09-05] MEDS: HYDROmorphone 1 MG/1 ML SYRINGE IV PRN ×4 (03:53→23:03)
[2021-09-05] MEDS: SODIUM CHLORIDE 0.9% 1,000 ML IV SCH (03:57)
[2021-09-05 04:25] LABS: Osmolality,Calculated 287.1 MOS/KG (273-304); Phosphorous 2.5 MG/DL (2.5-4.9); Potassium 3.5 MMOL/L (3.5-5.1)
[2021-09-05] MEDS: FLUTICASONE 50 MCG NASAL SPRAY 16 GM BOTTLE BOTH NARES SCH (08:04)
[2021-09-05] MEDS: NYSTATIN 500,000 UNIT/5 ML UDCUP SWISH/SWAL SCH ×4 (08:04→20:49)
[2021-09-05] MEDS: ENOXAPARIN 40 MG/0.4 ML SYRINGE SUBCUT SCH (08:04)
[2021-09-05] MEDS: diphenhydrAMINE 50 MG/1 ML VIAL IV PRN (20:11)
[2021-09-06] MEDS: SODIUM CHLORIDE 0.9% 1,000 ML IV SCH (03:19)
[2021-09-06 05:06] LABS: Basophils % 0.2 % (0.0-0.8); Eosinophils # 0.4 10*3/uL (0.0-0.87); Eosinophils % 2.7 % (0.00-10.9); Hemoglobin 9.2 GM/DL (12.0-16.0); Immature Granulocytes % 1.4 %; Lymphocytes # 0.8 10*3/uL (1.4-4.0); Lymphocytes % 5.2 % (21.3-54.2); Mean Corpuscular HGB Conc 31.7 GM/DL (32-36); Mean Corpuscular Volume 91.8 FL (87-102); Mean Platelet Volume 10.5 FL (9.6-12.0); Monocytes # 0.6 10*3/uL (0.11-0.8); Monocytes % 4.1 % (1.7-12.7); Neutrophils % 86.4 % (38.7-73.9); Platelet Count 388 T/CUMM (130-400); Red Blood Count 3.16 MC/CUMM (3.8-5.5); Red Cell Distribution Width 15.3 % (9.3-17.3); White Blood Count 14.8 T/CUMM (4-12)
[2021-09-06 05:23] LABS: Osmolality,Calculated 287.1 MOS/KG (273-304); Potassium 3.4 MMOL/L (3.5-5.1)
[2021-09-06] MEDS: HYDROmorphone 1 MG/1 ML SYRINGE IV PRN ×3 (06:14→21:11)
[2021-09-06] MEDS: ONDANSETRON 4 MG/2 ML VIAL IV PRN ×2 (06:24→21:11)
[2021-09-06] MEDS: NYSTATIN 500,000 UNIT/5 ML UDCUP SWISH/SWAL SCH ×4 (08:02→21:11)
[2021-09-06] MEDS: ENOXAPARIN 40 MG/0.4 ML SYRINGE SUBCUT SCH (08:02)
[2021-09-06] MEDS: FLUTICASONE 50 MCG NASAL SPRAY 16 GM BOTTLE BOTH NARES SCH (08:02)
[2021-09-06] MEDS ORDERED: POTASSIUM CHLORIDE RIDER 10 MEQ/100 ML PREMIX IV ONE (10:59)
[2021-09-06] MEDS: diphenhydrAMINE 50 MG/1 ML VIAL IV PRN (17:02)
[2021-09-06] MEDS: ACETAMINOPHEN 650 MG SUPP RECTAL PRN (21:11)
[2021-09-07] MEDS: SODIUM CHLORIDE 0.9% 1,000 ML IV SCH ×2 (01:26→05:36)
[2021-09-07] MEDS: HYDROmorphone 1 MG/1 ML SYRINGE IV PRN ×4 (03:12→21:24)
[2021-09-07 05:53] LABS: Basophils % 0.2 % (0.0-0.8); Eosinophils # 0.2 10*3/uL (0.0-0.87); Eosinophils % 1.6 % (0.00-10.9); Hematocrit 31.3 VOL% (35.7-47.0); Immature Granulocytes % 0.7 %; Immature Granulocytes Absolute 0.09 #; Lymphocytes # 0.6 10*3/uL (1.4-4.0); Lymphocytes % 4.8 % (21.3-54.2); Mean Corpuscular HGB Conc 31.9 GM/DL (32-36); Mean Corpuscular Volume 92.1 FL (87-102); Mean Platelet Volume 11.1 FL (9.6-12.0); Monocytes # 0.8 10*3/uL (0.11-0.8); Monocytes % 5.7 % (1.7-12.7); Platelet Count 465 T/CUMM (130-400); Red Cell Distribution Width 15.3 % (9.3-17.3); White Blood Count 13.4 T/CUMM (4-12)
[2021-09-07 06:06] LABS: Calcium 6.8 MG/DL (8.5-10.1); Osmolality,Calculated 287.1 MOS/KG (273-304); Potassium 3.8 MMOL/L (3.5-5.1)
[2021-09-07 07:58] LABS: Lymphocytes 8 % (20-55); Platelet Estimate Normal; Total Cells Counted 100
[2021-09-07] MEDS: FLUTICASONE 50 MCG NASAL SPRAY 16 GM BOTTLE BOTH NARES SCH (09:02)
[2021-09-07] MEDS: NYSTATIN 500,000 UNIT/5 ML UDCUP SWISH/SWAL SCH ×4 (09:02→20:27)
[2021-09-07] MEDS: ENOXAPARIN 40 MG/0.4 ML SYRINGE SUBCUT SCH (09:02)
[2021-09-07] MEDS: cloNIDine 0.3 MG/24 HR PATCH TRANSDERM SCH (09:03)
[2021-09-07] MEDS ORDERED: PANTOPRAZOLE 40 MG VIAL IV ONE (20:08)
[2021-09-08] MEDS: SODIUM CHLORIDE 0.9% 1,000 ML IV SCH (00:43)
[2021-09-08] MEDS: HYDROmorphone 1 MG/1 ML SYRINGE IV PRN ×4 (03:47→22:30)
[2021-09-08 05:24] LABS: Basophils # 0.1 10*3/uL (0.0-0.2); Basophils % 0.4 % (0.0-0.8); Eosinophils # 0.2 10*3/uL (0.0-0.87); Eosinophils % 1.9 % (0.00-10.9); Hematocrit 33.1 VOL% (35.7-47.0); Hemoglobin 10.3 GM/DL (12.0-16.0); Immature Granulocytes % 0.6 %; Immature Granulocytes Absolute 0.08 #; Lymphocytes # 0.9 10*3/uL (1.4-4.0); Lymphocytes % 6.8 % (21.3-54.2); Mean Corpuscular HGB Conc 31.1 GM/DL (32-36); Mean Corpuscular Volume 93.5 FL (87-102); Mean Platelet Volume 10.9 FL (9.6-12.0); Monocytes # 0.8 10*3/uL (0.11-0.8); Monocytes % 6.5 % (1.7-12.7); Neutrophils % 83.8 % (38.7-73.9); Platelet Count 496 T/CUMM (130-400); Red Blood Count 3.54 MC/CUMM (3.8-5.5); Red Cell Distribution Width 15.4 % (9.3-17.3); White Blood Count 12.5 T/CUMM (4-12)
[2021-09-08 05:49] LABS: Alanine Aminotransferase 46 U/L (13-56); Albumin 1.4 G/DL (3.4-5.0); Alkaline Phosphatase 84 U/L (45-117); Aspartate Amino Transferase 45 U/L (0-37); Bilirubin,Total < 0.39 MG/DL (0.20-1.00); Blood Urea Nitrogen 21 MG/DL (7-18); Calcium 6.5 MG/DL (8.5-10.1); Carbon Dioxide 20 MMOL/L (21-32); Chloride 113 MMOL/L (98-107); Glucose 132 MG/DL (74-106); Osmolality,Calculated 279.7 MOS/KG (273-304); Potassium 4.7 MMOL/L (3.5-5.1); Sodium 138 MMOL/L (136-145); Total Protein 5.7 G/DL (6.4-8.2)
[2021-09-08] MEDS: PANTOPRAZOLE 40 MG VIAL IV SCH (08:17)
[2021-09-08] MEDS: ENOXAPARIN 40 MG/0.4 ML SYRINGE SUBCUT SCH (08:17)
[2021-09-08] MEDS: NYSTATIN 500,000 UNIT/5 ML UDCUP SWISH/SWAL SCH ×4 (08:17→21:27)
[2021-09-08] MEDS: FLUTICASONE 50 MCG NASAL SPRAY 16 GM BOTTLE BOTH NARES SCH (08:18)
[2021-09-08] MEDS: BISACODYL 5 MG TABLET PO SCH ×2 (10:04→21:27)
[2021-09-08] MEDS: ONDANSETRON 4 MG/2 ML VIAL IV PRN ×2 (10:42→21:27)
[2021-09-08] MEDS: PROMETHAZINE INJ 12.5 MG in SODIUM CHLORIDE 0.9% 50 ML IV PRN (13:03)
[2021-09-08] MEDS: diphenhydrAMINE 50 MG/1 ML VIAL IV PRN (21:33)
[2021-09-09] MEDS: SODIUM CHLORIDE 0.9% 1,000 ML IV SCH (00:01)
[2021-09-09] MEDS: HYDROmorphone 1 MG/1 ML SYRINGE IV PRN ×4 (04:20→22:29)
[2021-09-09 05:40] LABS: Calcium 6.5 MG/DL (8.5-10.1); Osmolality,Calculated 275.8 MOS/KG (273-304); Phosphorous 1.9 MG/DL (2.5-4.9); Potassium 5.2 MMOL/L (3.5-5.1)
[2021-09-09] MEDS: PANTOPRAZOLE 40 MG VIAL IV SCH (08:48)
[2021-09-09] MEDS: NYSTATIN 500,000 UNIT/5 ML UDCUP SWISH/SWAL SCH ×5 (08:49→20:24)
[2021-09-09] MEDS: FLUTICASONE 50 MCG NASAL SPRAY 16 GM BOTTLE BOTH NARES SCH (08:49)
[2021-09-09] MEDS: ENOXAPARIN 40 MG/0.4 ML SYRINGE SUBCUT SCH (08:49)
[2021-09-09] MEDS: BISACODYL 5 MG TABLET PO SCH ×2 (08:49→20:23)
[2021-09-09] MEDS: ZINC OXIDE PASTE 113 GM TUBE TOP SCH ×2 (13:36→20:23)
[2021-09-09] MEDS: ONDANSETRON 4 MG/2 ML VIAL IV PRN (14:11)
[2021-09-09] MEDS: diphenhydrAMINE 50 MG/1 ML VIAL IV PRN ×2 (14:11→20:23)
[2021-09-10] MEDS: HYDROmorphone 1 MG/1 ML SYRINGE IV PRN ×3 (04:17→17:04)
[2021-09-10 04:47] LABS: Basophils # 0.1 10*3/uL (0.0-0.2); Basophils % 0.6 % (0.0-0.8); Eosinophils # 0.3 10*3/uL (0.0-0.87); Eosinophils % 2.4 % (0.00-10.9); Hematocrit 32.1 VOL% (35.7-47.0); Hemoglobin 10.2 GM/DL (12.0-16.0); Immature Granulocytes % 1.1 %; Immature Granulocytes Absolute 0.13 #; Lymphocytes # 1.2 10*3/uL (1.4-4.0); Mean Corpuscular HGB Conc 31.8 GM/DL (32-36); Mean Platelet Volume 11.3 FL (9.6-12.0); Monocytes # 1.2 10*3/uL (0.11-0.8); Monocytes % 10.5 % (1.7-12.7); Neutrophils % 75.4 % (38.7-73.9); Platelet Count 489 T/CUMM (130-400); Red Blood Count 3.49 MC/CUMM (3.8-5.5); Red Cell Distribution Width 15.6 % (9.3-17.3); White Blood Count 11.7 T/CUMM (4-12)
[2021-09-10] MEDS ORDERED: HYDROmorphone 1 MG/1 ML SYRINGE IV ONE (06:44)
[2021-09-10] MEDS: SODIUM CHLORIDE 0.9% 1,000 ML IV SCH (07:19)
[2021-09-10 07:35] LABS: Calcium 6.5 MG/DL (8.5-10.1); Osmolality,Calculated 281.5 MOS/KG (273-304); Potassium 4.7 MMOL/L (3.5-5.1)
[2021-09-10] MEDS: ENOXAPARIN 40 MG/0.4 ML SYRINGE SUBCUT SCH (09:05)
[2021-09-10] MEDS: FLUTICASONE 50 MCG NASAL SPRAY 16 GM BOTTLE BOTH NARES SCH (09:05)
[2021-09-10] MEDS: ZINC OXIDE PASTE 113 GM TUBE TOP SCH ×2 (09:05→20:58)
[2021-09-10] MEDS: PANTOPRAZOLE 40 MG VIAL IV SCH (09:05)
[2021-09-10] MEDS: BISACODYL 5 MG TABLET PO SCH ×2 (09:05→20:59)
[2021-09-10] MEDS: NYSTATIN 500,000 UNIT/5 ML UDCUP SWISH/SWAL SCH ×4 (09:06→20:59)
[2021-09-10] MEDS: diphenhydrAMINE 50 MG/1 ML VIAL IV PRN ×2 (09:22→20:58)
[2021-09-11] MEDS: HYDROmorphone 1 MG/1 ML SYRINGE IV PRN ×4 (00:30→15:52)
[2021-09-11 05:22] LABS: Basophils # 0.1 10*3/uL (0.0-0.2); Basophils % 0.7 % (0.0-0.8); Eosinophils # 0.2 10*3/uL (0.0-0.87); Eosinophils % 2.5 % (0.00-10.9); Hematocrit 30.2 VOL% (35.7-47.0); Hemoglobin 9.4 GM/DL (12.0-16.0); Immature Granulocytes % 1.2 %; Immature Granulocytes Absolute 0.11 #; Lymphocytes # 0.8 10*3/uL (1.4-4.0); Lymphocytes % 9.4 % (21.3-54.2); Mean Corpuscular HGB Conc 31.1 GM/DL (32-36); Mean Corpuscular Volume 92.9 FL (87-102); Mean Platelet Volume 9.9 FL (9.6-12.0); Monocytes % 11.4 % (1.7-12.7); Neutrophils % 74.8 % (38.7-73.9); Platelet Count 559 T/CUMM (130-400); Red Blood Count 3.25 MC/CUMM (3.8-5.5); Red Cell Distribution Width 15.5 % (9.3-17.3); White Blood Count 8.8 T/CUMM (4-12)
[2021-09-11 05:42] LABS: Calcium 6.6 MG/DL (8.5-10.1); Osmolality,Calculated 280.5 MOS/KG (273-304); Potassium 5.1 MMOL/L (3.5-5.1)
[2021-09-11] MEDS: diphenhydrAMINE 50 MG/1 ML VIAL IV PRN ×2 (06:31→22:51)
[2021-09-11] MEDS: SODIUM CHLORIDE 0.9% 1,000 ML IV SCH (08:15)
[2021-09-11] MEDS: ENOXAPARIN 40 MG/0.4 ML SYRINGE SUBCUT SCH (09:44)
[2021-09-11] MEDS: FLUTICASONE 50 MCG NASAL SPRAY 16 GM BOTTLE BOTH NARES SCH (09:45)
[2021-09-11] MEDS: ZINC OXIDE PASTE 113 GM TUBE TOP SCH ×2 (09:45→21:46)
[2021-09-11] MEDS: NYSTATIN 500,000 UNIT/5 ML UDCUP SWISH/SWAL SCH ×5 (09:45→21:49)
[2021-09-11] MEDS: BISACODYL 5 MG TABLET PO SCH ×2 (09:45→21:48)
[2021-09-11] MEDS: PANTOPRAZOLE 40 MG VIAL IV SCH (09:45)
[2021-09-11] MEDS: PROMETHAZINE INJ 12.5 MG in SODIUM CHLORIDE 0.9% 50 ML IV PRN (12:20)
[2021-09-12] MEDS: SODIUM CHLORIDE 0.9% 1,000 ML IV SCH (00:56)
[2021-09-12 05:14] LABS: Basophils # 0.1 10*3/uL (0.0-0.2); Basophils % 0.8 % (0.0-0.8); Eosinophils # 0.2 10*3/uL (0.0-0.87); Eosinophils % 2.6 % (0.00-10.9); Hematocrit 30.8 VOL% (35.7-47.0); Hemoglobin 9.7 GM/DL (12.0-16.0); Immature Granulocytes Absolute 0.09 #; Lymphocytes # 0.8 10*3/uL (1.4-4.0); Lymphocytes % 8.7 % (21.3-54.2); Mean Corpuscular HGB Conc 31.5 GM/DL (32-36); Mean Corpuscular Volume 91.4 FL (87-102); Mean Platelet Volume 10.6 FL (9.6-12.0); Monocytes % 11.2 % (1.7-12.7); Neutrophils % 75.7 % (38.7-73.9); Platelet Count 589 T/CUMM (130-400); Red Blood Count 3.37 MC/CUMM (3.8-5.5); Red Cell Distribution Width 15.4 % (9.3-17.3); White Blood Count 9.3 T/CUMM (4-12)
[2021-09-12] MEDS: diphenhydrAMINE 50 MG/1 ML VIAL IV PRN (05:23)
[2021-09-12 05:33] LABS: Calcium 7.2 MG/DL (8.5-10.1); Osmolality,Calculated 281.5 MOS/KG (273-304); Potassium 5.2 MMOL/L (3.5-5.1)
[2021-09-12] MEDS: BISACODYL 5 MG TABLET PO SCH (09:19)
[2021-09-12] MEDS: FLUTICASONE 50 MCG NASAL SPRAY 16 GM BOTTLE BOTH NARES SCH (09:20)
[2021-09-12] MEDS: PANTOPRAZOLE 40 MG VIAL IV SCH (09:20)
[2021-09-12] MEDS: ENOXAPARIN 40 MG/0.4 ML SYRINGE SUBCUT SCH (09:20)
[2021-09-12] MEDS: NYSTATIN 500,000 UNIT/5 ML UDCUP SWISH/SWAL SCH ×2 (09:21→14:27)
[2021-09-12] MEDS: HYDROmorphone 1 MG/1 ML SYRINGE IV PRN ×2 (09:21→15:22)
[2021-09-12] MEDS: ZINC OXIDE PASTE 113 GM TUBE TOP SCH (09:21)
[2021-09-12] MEDS: PROMETHAZINE INJ 12.5 MG in SODIUM CHLORIDE 0.9% 50 ML IV PRN (11:42)
[2021-09-12 16:47] VITALS: BP 136/74
[2021-11-03] MEDS ORDERED: DENOSUMAB 60 MG/ML SYRINGE SUBCUT SCH (09:00)
== END 2021-09-12 16:07 | disposition swing bed (61) | DRG 982 ==
LOC: N.EDINP 23:45 → N.ED 23:45 → N.TELES 08-24 04:51
PROVIDERS: ADMIT Family Medicine; ATTEND Family Medicine